=== PATIENT | female | born 1985 | race Caucasian/White ===

== ENCOUNTER → 2018-01-04 08:16 | Outpatient (CLI) | payer MEDICAID | END | disposition home or self-care (01) | LOC: D.US 08:16 | DX: R10.10 Upper abdominal pain, unspecified (principal) ==

== ENCOUNTER → 2018-01-10 12:39 | Outpatient (CLI) | payer MEDICAID | END | disposition home or self-care (01) | LOC: D.NM 12:39 | DX: R10.11 Right upper quadrant pain (principal) ==

== ENCOUNTER → 2018-03-23 10:25 | Outpatient (CLI) | payer MEDICAID | END | disposition home or self-care (01) | LOC: D.LAB 10:25 | DX: R10.12 Left upper quadrant pain (principal) ==

== ENCOUNTER → 2018-03-28 08:55 | Outpatient (CLI) | payer MEDICAID | END | disposition home or self-care (01) | LOC: D.LAB 08:55 | DX: R10.12 Left upper quadrant pain (principal); R19.7 Diarrhea, unspecified; R11.10 Vomiting, unspecified; R63.4 Abnormal weight loss ==

== ENCOUNTER 2018-10-18 00:38 | Emergency (ER) | payer MEDICAID ==
[~2018-10-18] VITALS: Ht 165.1 cm; Wt 80.9 kg
[2018-10-18 00:43] VITALS: Ht 165.1 cm; Wt 80.9 kg
[2018-10-18] MEDS ORDERED: ZESTRIL10 MG PO (00:46)
[2018-10-18] MEDS ORDERED: ZOFRAN4 MG PO (00:46)
[2018-10-18 01:24] LABS: APPEARANCE CLEAR (CLEAR); COLOR YELLOW (YELLOW); SPECIFIC GRAVITY 1.015 (1.005-1.020)
[2018-10-18 01:25] LABS: BILIRUBIN NEGATIVE (NEGATIVE); GLUCOSE NEGATIVE (NEGATIVE); KETONE NEGATIVE (NEGATIVE); NITRITE NEGATIVE (NEGATIVE); PROTEIN NEGATIVE (NEGATIVE); UROBILINOGEN NORMAL (NORMAL)
[2018-10-18 01:26] LABS: BACTERIA FEW /hpf (NONE SEEN); EPITHELIAL CELLS 0-5 /hpf (0-5); RED CELLS - URINE 0-5 /hpf (0-5); WHITE CELLS - URINE 0-5 /hpf (0-5)
[2018-10-18 01:28] LABS: BASOPHILS 1.2 % (0-2); EOSINOPHILS 1.5 % (0-7); HEMATOCRIT 41.8 % (36.0-48.0); HEMOGLOBIN 14.4 g/dL (12-16); IMMATURE GRANULOCYTES 0.1 % (0-5); LYMPHOCYTES 27.2 % (15-50); MCH 29.4 pg (26.0-34.0); MCHC 34.4 g/dL (31.0-37.0); MCV 85.3 fL (80.0-100.0); MEAN PLATELET VOLUME 10.7 fL (7.4-10.4); PLATELET COUNT 236 10x3/uL (130-400); RDW 13.2 % (11.5-14.5); WBC 6.8 10x3/uL (4.8-10.8)
[2018-10-18 01:45] LABS: ALBUMIN 4.2 g/dL (3.4-5.0); ALKALINE PHOSPHATASE 57 U/L (46-116); ALT (SGPT) 24 U/L (10-68); BILIRUBIN - TOTAL 0.26 mg/dL (0.2-1.3); CALC OSMOLALITY 282 mosm/kg (275-300); CARBON DIOXIDE 24.9 mmol/L (21.0-32.0); CHLORIDE - SERUM 104 mmol/L (98-107); CREATININE - SERUM 0.8 mg/dL (0.6-1.3); GLUCOSE 111 mg/dL (74-106); POTASSIUM - SERUM 3.6 mmol/L (3.5-5.1); PROTEIN - SERUM 7.6 g/dL (6.4-8.2); SODIUM 143 mmol/L (136-145); UREA NITROGEN 5 mg/dL (7-18); eGFR NON AFRICAN AMERICAN 87 mL/min (90-120)
[2018-10-18 01:48] LABS: AMYLASE - SERUM 45 U/L (25-115); LIPASE 109 U/L (73-393); TROPONIN-I < 0.017 ng/mL (0.000-0.060)
[2018-10-18] MEDS ORDERED: NORCO 5/325 TAB1 TAB PO (02:51)
[2018-10-18] MEDS ORDERED: BENTYL 20 MG TA20 MG PO (02:51)
[2018-10-18 03:13] VITALS: BP 124/76
== END 2018-10-18 03:13 | disposition home or self-care (01) ==
LOC: D.ER 00:38
PROVIDERS: Emergency Medicine
DX: K58.9 Irritable bowel syndrome, unspecified (principal); R10.9 Unspecified abdominal pain; I10 Essential (primary) hypertension

== ENCOUNTER 2018-10-22 00:14 | Emergency (ER) | payer MEDICAID ==
[~2018-10-22] VITALS: Ht 165.1 cm; Wt 78.2 kg
[~2018-10-22 00:14] MED LIST: BENTYL 20 MG TA20 MG PO; NORCO 5/325 TAB1 TAB PO; ZESTRIL10 MG PO; ZOFRAN4 MG PO
[2018-10-22 00:19] VITALS: Ht 165.1 cm; Wt 78.2 kg
[2018-10-22 00:45] LABS: HEMATOCRIT 40.8 % (36.0-48.0); HEMOGLOBIN 13.7 g/dL (12-16); LYMPHOCYTES 36.9 % (15-50); MCH 28.7 pg (26.0-34.0); MCHC 33.6 g/dL (31.0-37.0); MCV 85.5 fL (80.0-100.0); MEAN PLATELET VOLUME 10.4 fL (7.4-10.4); NEUTROPHILS 56.1 % (40-80); PLATELET COUNT 196 10x3/uL (130-400); RBC 4.77 10x6/uL (4.00-5.40); RDW 12.9 % (11.5-14.5); WBC 6.2 10x3/uL (4.8-10.8)
[2018-10-22 01:05] LABS: ALBUMIN 4.2 g/dL (3.4-5.0); ALKALINE PHOSPHATASE 50 U/L (46-116); ALT (SGPT) 29 U/L (10-68); BILIRUBIN - TOTAL 0.22 mg/dL (0.2-1.3); CALC OSMOLALITY 278 mosm/kg (275-300); CARBON DIOXIDE 28.1 mmol/L (21.0-32.0); CHLORIDE - SERUM 104 mmol/L (98-107); CREATININE - SERUM 0.8 mg/dL (0.6-1.3); GLUCOSE 106 mg/dL (74-106); POTASSIUM - SERUM 3.9 mmol/L (3.5-5.1); PROTEIN - SERUM 7.3 g/dL (6.4-8.2); SODIUM 141 mmol/L (136-145); UREA NITROGEN 7 mg/dL (7-18); eGFR NON AFRICAN AMERICAN 87 mL/min (90-120)
[2018-10-22 01:13] LABS: AMYLASE - SERUM 46 U/L (25-115); LIPASE 118 U/L (73-393); THYROID STIMULATING HORMONE 3.16 uIU/mL (0.36-3.74); TROPONIN-I < 0.017 ng/mL (0.000-0.060)
[2018-10-22 02:15] LABS: APPEARANCE CLEAR (CLEAR); BACTERIA FEW /hpf (NONE SEEN); BILIRUBIN NEGATIVE (NEGATIVE); COLOR STRAW (YELLOW); EPITHELIAL CELLS OCC /hpf (0-5); GLUCOSE NEGATIVE (NEGATIVE); KETONE NEGATIVE (NEGATIVE); NITRITE NEGATIVE (NEGATIVE); PROTEIN NEGATIVE (NEGATIVE); RED CELLS - URINE RARE /hpf (0-5); SPECIFIC GRAVITY 1.005 (1.005-1.020); UROBILINOGEN NORMAL (NORMAL); WHITE CELLS - URINE 0-5 /hpf (0-5)
[2018-10-22 02:53] LABS: HCG URINE NEGATIVE (NEGATIVE)
[2018-10-22 02:58] LABS: UDS - AMPHET NEGATIVE QUAL (NEGATIVE); UDS - BARB NEGATIVE QUAL (NEGATIVE); UDS - BENZO NEGATIVE QUAL (NEGATIVE); UDS - COCAINE NEGATIVE QUAL (NEGATIVE); UDS - OPIATE POSITIVE QUAL (NEGATIVE); UDS - PCP NEGATIVE QUAL (NEGATIVE); UDS - THC NEGATIVE QUAL (NEGATIVE)
[2018-10-22 03:16] VITALS: BP 123/67
== END 2018-10-22 03:16 | disposition home or self-care (01) ==
LOC: D.ER 00:14
PROVIDERS: Family Medicine
DX: R10.12 Left upper quadrant pain (principal); I10 Essential (primary) hypertension; Z87.19 Personal history of other diseases of the digestive system

== ENCOUNTER 2018-11-11 00:36 | Emergency (ER) | payer MEDICAID ==
[~2018-11-11] VITALS: Ht 165.1 cm; Wt 79.1 kg
[2018-11-11 00:40] VITALS: Ht 165.1 cm; Wt 79.1 kg
[2018-11-11] MEDS ORDERED: LEVSIN/ANASP0.125 MG PO (00:55)
[2018-11-11 01:36] VITALS: BP 132/79
== END 2018-11-11 01:36 | disposition home or self-care (01) ==
LOC: D.ER 00:36
DX: K58.9 Irritable bowel syndrome, unspecified (principal)

== ENCOUNTER 2018-11-15 06:42 | Emergency (ER) | payer MEDICAID ==
[~2018-11-15] VITALS: Ht 165.1 cm; Wt 79.1 kg
[~2018-11-15 06:42] MED LIST changes: +LEVSIN/ANASP0.125 MG PO
[2018-11-15 06:50] VITALS: Ht 165.1 cm; Wt 79.1 kg
[2018-11-15 07:05] LABS: HCG URINE NEGATIVE (NEGATIVE)
[2018-11-15 07:06] LABS: APPEARANCE CLEAR (CLEAR); BILIRUBIN NEGATIVE (NEGATIVE); COLOR YELLOW (YELLOW); EPITHELIAL CELLS 0-5 /hpf (0-5); GLUCOSE NEGATIVE (NEGATIVE); KETONE NEGATIVE (NEGATIVE); NITRITE NEGATIVE (NEGATIVE); PROTEIN NEGATIVE (NEGATIVE); SPECIFIC GRAVITY 1.015 (1.005-1.020); UROBILINOGEN NORMAL (NORMAL); WHITE CELLS - URINE 0-5 /hpf (0-5)
[2018-11-15 07:15] LABS: BASOPHILS 0.4 % (0-2); EOSINOPHILS 2.5 % (0-7); HEMATOCRIT 38.3 % (36.0-48.0); HEMOGLOBIN 13.1 g/dL (12-16); IMMATURE GRANULOCYTES 0.2 % (0-5); LYMPHOCYTES 33.3 % (15-50); MCH 29.2 pg (26.0-34.0); MCHC 34.2 g/dL (31.0-37.0); MCV 85.3 fL (80.0-100.0); MEAN PLATELET VOLUME 10.4 fL (7.4-10.4); NEUTROPHILS 56.6 % (40-80); PLATELET COUNT 178 10x3/uL (130-400); RBC 4.49 10x6/uL (4.00-5.40); RDW 13.3 % (11.5-14.5); WBC 5.3 10x3/uL (4.8-10.8)
[2018-11-15 07:24] LABS: ALBUMIN 3.8 g/dL (3.4-5.0); ALKALINE PHOSPHATASE 54 U/L (46-116); ALT (SGPT) 23 U/L (10-68); BILIRUBIN - TOTAL 0.23 mg/dL (0.2-1.3); CALC OSMOLALITY 278 mosm/kg (275-300); CALCIUM 8.5 mg/dL (8.5-10.1); CARBON DIOXIDE 24.1 mmol/L (21.0-32.0); CHLORIDE - SERUM 106 mmol/L (98-107); CREATININE - SERUM 0.7 mg/dL (0.6-1.3); GLUCOSE 106 mg/dL (74-106); LIPASE 83 U/L (73-393); POTASSIUM - SERUM 3.7 mmol/L (3.5-5.1); PROTEIN - SERUM 6.9 g/dL (6.4-8.2); SODIUM 141 mmol/L (136-145); UREA NITROGEN 6 mg/dL (7-18); eGFR NON AFRICAN AMERICAN > 90 mL/min (90-120)
[2018-11-15] MEDS ORDERED: TORADOL10 MG PO (08:08)
[2018-11-15 09:09] VITALS: BP 102/50
== END 2018-11-15 09:05 | disposition home or self-care (01) ==
LOC: D.ER 06:42
PROVIDERS: Family Medicine
DX: R10.9 Unspecified abdominal pain (principal); R11.10 Vomiting, unspecified

== ENCOUNTER 2018-11-19 06:14 | Emergency (ER) | payer MEDICAID ==
[~2018-11-19] VITALS: Ht 165.1 cm; Wt 80.7 kg
[~2018-11-19 06:14] MED LIST changes: +TORADOL10 MG PO
[2018-11-19 06:22] VITALS: Ht 165.1 cm; Wt 80.7 kg
[2018-11-19] MEDS ORDERED: BENTYL 20 MG TA20 MG PO (07:00)
[2018-11-19 07:30] VITALS: BP 156/81
== END 2018-11-19 07:40 | disposition home or self-care (01) ==
LOC: D.ER 06:14
DX: R10.9 Unspecified abdominal pain (principal)

== ENCOUNTER → 2018-11-23 12:40 | Outpatient (CLI) | payer MEDICAID ==
[2018-11-19 06:22] VITALS: BMI 29.6
[2018-11-23 13:53] LABS: ALBUMIN 3.8 g/dL (3.4-5.0); ALKALINE PHOSPHATASE 63 U/L (46-116); ALT (SGPT) 26 U/L (10-68); BILIRUBIN - TOTAL 0.27 mg/dL (0.2-1.3); C-REACTIVE PROTEIN 0.2 mg/dL (0.0-0.9); CALC OSMOLALITY 279 mosm/kg (275-300); CALCIUM 8.7 mg/dL (8.5-10.1); CARBON DIOXIDE 27.1 mmol/L (21.0-32.0); CHLORIDE - SERUM 105 mmol/L (98-107); CREATININE - SERUM 0.7 mg/dL (0.6-1.3); GLUCOSE 119 mg/dL (74-106); PROTEIN - SERUM 7.3 g/dL (6.4-8.2); SODIUM 141 mmol/L (136-145); UREA NITROGEN 7 mg/dL (7-18); eGFR NON AFRICAN AMERICAN > 90 mL/min (90-120)
[2018-11-23 14:34] LABS: BASOPHILS 1.1 % (0-2); EOSINOPHILS 1.7 % (0-7); HEMATOCRIT 39.9 % (36.0-48.0); HEMOGLOBIN 13.5 g/dL (12-16); LYMPHOCYTES 28.4 % (15-50); MCHC 33.8 g/dL (31.0-37.0); MCV 85.6 fL (80.0-100.0); MEAN PLATELET VOLUME 10.3 fL (7.4-10.4); MONOCYTES 7.8 % (2-11); PLATELET COUNT 208 10x3/uL (130-400); RBC 4.66 10x6/uL (4.00-5.40); RDW 13.4 % (11.5-14.5); WBC 5.4 10x3/uL (4.8-10.8)
[2018-11-23 15:59] LABS: ERYTHROCYTE SEDIMENTATION RATE 5 mm/hr (0-20)
== END | disposition home or self-care (01) ==
LOC: D.RAD 12:40
PROVIDERS: Internal Medicine Gastroenterology
DX: K59.00 Constipation, unspecified (principal)

== ENCOUNTER 2018-12-17 03:57 | Emergency (ER) | payer MEDICAID ==
[~2018-12-17] VITALS: Ht 165.1 cm; Wt 77.6 kg
[2018-12-17 04:00] VITALS: Ht 165.1 cm; Wt 77.6 kg
[2018-12-17 04:40] LABS: BASOPHILS 0.8 % (0-2); EOSINOPHILS 3.3 % (0-7); HEMATOCRIT 38.9 % (36.0-48.0); HEMOGLOBIN 13.2 g/dL (12-16); LYMPHOCYTES 27.4 % (15-50); MCH 28.8 pg (26.0-34.0); MCHC 33.9 g/dL (31.0-37.0); MCV 84.9 fL (80.0-100.0); MEAN PLATELET VOLUME 10.2 fL (7.4-10.4); MONOCYTES 11.5 % (2-11); PLATELET COUNT 187 10x3/uL (130-400); RBC 4.58 10x6/uL (4.00-5.40); RDW 12.9 % (11.5-14.5); WBC 5.2 10x3/uL (4.8-10.8)
[2018-12-17 04:42] LABS: APPEARANCE CLEAR (CLEAR); BILIRUBIN NEGATIVE (NEGATIVE); COLOR YELLOW (YELLOW); GLUCOSE NEGATIVE (NEGATIVE); HCG URINE NEGATIVE (NEGATIVE); KETONE NEGATIVE (NEGATIVE); NITRITE NEGATIVE (NEGATIVE); PROTEIN NEGATIVE (NEGATIVE); UROBILINOGEN NORMAL (NORMAL)
[2018-12-17 05:06] LABS: ALBUMIN 3.9 g/dL (3.4-5.0); ALKALINE PHOSPHATASE 75 U/L (46-116); ALT (SGPT) 18 U/L (10-68); AMYLASE - SERUM 48 U/L (25-115); BILIRUBIN - TOTAL 0.33 mg/dL (0.2-1.3); CALC OSMOLALITY 280 mosm/kg (275-300); CALCIUM 8.7 mg/dL (8.5-10.1); CHLORIDE - SERUM 104 mmol/L (98-107); CREATININE - SERUM 0.7 mg/dL (0.6-1.3); GLUCOSE 107 mg/dL (74-106); LIPASE 104 U/L (73-393); POTASSIUM - SERUM 4.3 mmol/L (3.5-5.1); PROTEIN - SERUM 7.6 g/dL (6.4-8.2); SODIUM 142 mmol/L (136-145); UREA NITROGEN 8 mg/dL (7-18); eGFR NON AFRICAN AMERICAN > 90 mL/min (90-120)
[2018-12-17 06:40] VITALS: BP 124/75
== END 2018-12-17 06:40 | disposition home or self-care (01) ==
LOC: D.ER 03:57
PROVIDERS: Family Medicine
DX: K58.9 Irritable bowel syndrome, unspecified (principal); R11.2 Nausea with vomiting, unspecified

== ENCOUNTER → 2019-02-15 13:02 | Outpatient (CLI) | payer MEDICAID ==
[2018-12-17 04:00] VITALS: BMI 29.6
== END | disposition home or self-care (01) ==
LOC: D.RAD 13:02
PROVIDERS: ATTEND Internal Medicine Gastroenterology
DX: K59.00 Constipation, unspecified (principal)

== ENCOUNTER 2019-07-09 03:50 | Emergency (ER) | payer MEDICAID ==
[~2019-07-09] VITALS: Ht 165.1 cm; Wt 75.9 kg
[2019-07-09 03:53] VITALS: Ht 165.1 cm; Wt 75.9 kg
[2019-07-09 04:48] LABS: BASOPHILS 0.9 % (0-2); EOSINOPHILS 2.4 % (0-7); HEMOGLOBIN 13.6 g/dL (12-16); IMMATURE GRANULOCYTES 0.1 % (0-5); LYMPHOCYTES 29.3 % (15-50); MCH 29.4 pg (26.0-34.0); MCV 86.6 fL (80.0-100.0); MONOCYTES 9.8 % (2-11); NEUTROPHILS 57.5 % (40-80); RBC 4.62 10x6/uL (4.00-5.40); RDW 12.8 % (11.5-14.5); WBC 7.6 10x3/uL (4.8-10.8)
[2019-07-09 05:09] LABS: APPEARANCE CLOUDY (CLEAR); BILIRUBIN NEGATIVE (NEGATIVE); COLOR YELLOW (YELLOW); GLUCOSE NEGATIVE (NEGATIVE); KETONE NEGATIVE (NEGATIVE); NITRITE NEGATIVE (NEGATIVE); PLATELET COUNT 255 10x3/uL (130-400); PROTEIN NEGATIVE (NEGATIVE); UROBILINOGEN NORMAL (NORMAL)
[2019-07-09 05:13] LABS: HCG SERUM NEGATIVE (NEGATIVE)
[2019-07-09 05:14] LABS: WHITE CELLS - URINE 0-5 /hpf (NEGATIVE)
[2019-07-09 05:15] LABS: ALBUMIN 4.1 g/dL (3.4-5.0); ALKALINE PHOSPHATASE 71 U/L (46-116); ALT (SGPT) 17 U/L (10-68); BACTERIA FEW /hpf (NEGATIVE); BILIRUBIN - TOTAL 0.51 mg/dL (0.2-1.3); CALC OSMOLALITY 279 mosm/kg (275-300); CALCIUM 8.8 mg/dL (8.5-10.1); CARBON DIOXIDE 26.6 mmol/L (21.0-32.0); CHLORIDE - SERUM 106 mmol/L (98-107); CREATININE - SERUM 0.8 mg/dL (0.6-1.3); EPITHELIAL CELLS 0-5 /hpf (0-5); GLUCOSE 101 mg/dL (74-106); POTASSIUM - SERUM 3.6 mmol/L (3.5-5.1); PROTEIN - SERUM 7.5 g/dL (6.4-8.2); SODIUM 141 mmol/L (136-145); UREA NITROGEN 9 mg/dL (7-18); eGFR NON AFRICAN AMERICAN 86 mL/min (90-120)
[2019-07-09 05:19] LABS: AMYLASE - SERUM 44 U/L (25-115); LIPASE 97 U/L (73-393)
[2019-07-09 05:20] LABS: TROPONIN-I < 0.017 ng/mL (0.000-0.060)
[2019-07-09] MEDS ORDERED: NAPROSYN500 MG PO (08:10)
[2019-07-09] MEDS ORDERED: ZOFRAN8 MG PO (08:10)
[2019-07-09 08:38] VITALS: BP 112/64
== END 2019-07-09 08:36 | disposition home or self-care (01) ==
LOC: D.ER 03:50
PROVIDERS: Family Medicine
DX: R10.2 Pelvic and perineal pain (principal); N83.209 Unspecified ovarian cyst, unspecified side

== ENCOUNTER 2019-07-26 06:31 | Emergency (ER) | payer MEDICAID ==
[~2019-07-26] VITALS: Ht 165.1 cm; Wt 74.5 kg
[~2019-07-26 06:31] MED LIST changes: +NAPROSYN500 MG PO; +ZOFRAN8 MG PO
[2019-07-26 06:34] VITALS: Ht 165.1 cm; Wt 74.5 kg
[2019-07-26 07:07] LABS: HCG URINE NEGATIVE (NEGATIVE)
[2019-07-26 07:15] LABS: BASOPHILS 0.8 % (0-2); EOSINOPHILS 1.8 % (0-7); HEMOGLOBIN 14.7 g/dL (12-16); IMMATURE GRANULOCYTES 0.1 % (0-5); LYMPHOCYTES 32.7 % (15-50); MCH 29.6 pg (26.0-34.0); MCHC 33.4 g/dL (31.0-37.0); MCV 88.7 fL (80.0-100.0); MEAN PLATELET VOLUME 10.4 fL (7.4-10.4); MONOCYTES 7.4 % (2-11); NEUTROPHILS 57.2 % (40-80); PLATELET COUNT 219 10x3/uL (130-400); RBC 4.96 10x6/uL (4.00-5.40); RDW 12.9 % (11.5-14.5); WBC 7.4 10x3/uL (4.8-10.8)
[2019-07-26 07:18] LABS: APPEARANCE HAZY (CLEAR); BACTERIA MODERATE /hpf (NEGATIVE); BILIRUBIN NEGATIVE (NEGATIVE); COLOR STRAW (YELLOW); GLUCOSE NEGATIVE (NEGATIVE); KETONE NEGATIVE (NEGATIVE); MUCUS >1+ /lpf (NONE SEEN); NITRITE NEGATIVE (NEGATIVE); PROTEIN NEGATIVE (NEGATIVE); RED CELLS - URINE RARE /hpf (0-5); UROBILINOGEN NORMAL (NORMAL); WHITE CELLS - URINE 0-5 /hpf (NEGATIVE)
[2019-07-26 07:31] LABS: ALBUMIN 4.4 g/dL (3.4-5.0); C-REACTIVE PROTEIN < 0.2 mg/dL (0.0-0.9); CALC OSMOLALITY 279 mosm/kg (275-300); CALCIUM 9.1 mg/dL (8.5-10.1); CARBON DIOXIDE 28.7 mmol/L (21.0-32.0); CHLORIDE - SERUM 103 mmol/L (98-107); CREATININE - SERUM 0.7 mg/dL (0.6-1.3); GLUCOSE 88 mg/dL (74-106); POTASSIUM - SERUM 3.8 mmol/L (3.5-5.1); SODIUM 142 mmol/L (136-145); UREA NITROGEN 6 mg/dL (7-18); eGFR NON AFRICAN AMERICAN > 90 mL/min (90-120)
[2019-07-26 07:44] LABS: ALKALINE PHOSPHATASE 69 U/L (46-116); ALT (SGPT) 17 U/L (10-68); BILIRUBIN - TOTAL 0.45 mg/dL (0.2-1.3); LIPASE 116 U/L (73-393)
[2019-07-26 07:45] LABS: PROTEIN - SERUM 8.1 g/dL (6.4-8.2)
[2019-07-26] MEDS ORDERED: CYCLOBENZAPRINE10 MG PO (08:00)
[2019-07-26] MEDS ORDERED: IBUPROFEN800 MG PO (08:00)
[2019-07-26] MEDS ORDERED: MACROBID100 MG PO (08:00)
[2019-07-26] MEDS ORDERED: KEFLEX500 MG PO (08:00)
[2019-07-26] MEDS ORDERED: ACETAMINOPHEN500 M1 PO (08:00)
[2019-07-26 08:36] VITALS: BP 119/75
== END 2019-07-26 08:36 | disposition home or self-care (01) ==
LOC: D.ER 06:31
PROVIDERS: Family Medicine
DX: R10.2 Pelvic and perineal pain (principal); N39.0 Urinary tract infection, site not specified

== ENCOUNTER 2019-10-11 19:47 | Emergency (ER) | payer MEDICAID ==
[~2019-10-11] VITALS: Ht 165.1 cm; Wt 70.9 kg
[~2019-10-11 19:47] MED LIST changes: +ACETAMINOPHEN500 M1 PO; +CYCLOBENZAPRINE10 MG PO; +IBUPROFEN800 MG PO; +KEFLEX500 MG PO; +MACROBID100 MG PO
[2019-10-11 20:02] VITALS: Ht 165.1 cm; Wt 70.9 kg
[2019-10-11] MEDS ORDERED: AMOXICILLIN875 MG PO (22:18)
[2019-10-11 22:27] VITALS: BP 130/91
== END 2019-10-11 22:27 | disposition home or self-care (01) ==
LOC: D.ER 19:47
DX: T78.40XA Allergy, unspecified, initial encounter (principal); X58.XXXA Exposure to other specified factors, initial encounter

== ENCOUNTER 2020-03-24 00:38 | Emergency (ER) | payer MEDICAID ==
[~2020-03-24] VITALS: Ht 165.1 cm; Wt 74.8 kg
[~2020-03-24 00:38] MED LIST changes: +AMOXICILLIN875 MG PO
[2020-03-24 00:56] VITALS: Ht 165.1 cm; Wt 74.8 kg
[2020-03-24 01:27] LABS: BASOPHILS 0.8 % (0-2); EOSINOPHILS 0.8 % (0-7); HEMATOCRIT 44.4 % (36.0-48.0); HEMOGLOBIN 14.8 g/dL (12-16); IMMATURE GRANULOCYTES 0.3 % (0-5); LYMPHOCYTES 19.5 % (15-50); MCH 29.3 pg (26.0-34.0); MCHC 33.3 g/dL (31.0-37.0); MCV 87.9 fL (80.0-100.0); MONOCYTES 9.8 % (2-11); NEUTROPHILS 68.8 % (40-80); PLATELET COUNT 257 10x3/uL (130-400); RBC 5.05 10x6/uL (4.00-5.40); WBC 9.9 10x3/uL (4.8-10.8)
[2020-03-24 01:30] LABS: HCG URINE NEGATIVE (NEGATIVE)
[2020-03-24 01:37] LABS: BILIRUBIN NEGATIVE (NEGATIVE); GLUCOSE NEGATIVE (NEGATIVE); KETONE NEGATIVE (NEGATIVE); NITRITE NEGATIVE (NEGATIVE); SPECIFIC GRAVITY 1.015 (1.005-1.020); UROBILINOGEN NORMAL (NORMAL)
[2020-03-24 01:38] LABS: BACTERIA FEW /hpf (NEGATIVE); EPITHELIAL CELLS 0-5 /hpf (0-5); RED CELLS - URINE 0-5 /hpf (0-5); WHITE CELLS - URINE 0-5 /hpf (NEGATIVE)
[2020-03-24 01:41] LABS: CALC OSMOLALITY 272 mosm/kg (275-300); CALCIUM 9.1 mg/dL (8.5-10.1); CARBON DIOXIDE 29.7 mmol/L (21.0-32.0); CHLORIDE - SERUM 101 mmol/L (98-107); CREATININE - SERUM 0.6 mg/dL (0.6-1.3); GLUCOSE 97 mg/dL (74-106); POTASSIUM - SERUM 4.9 mmol/L (3.5-5.1); SODIUM 138 mmol/L (136-145); UREA NITROGEN 4 mg/dL (7-18); eGFR NON AFRICAN AMERICAN > 90 mL/min (90-120)
[2020-03-24 01:49] LABS: ALBUMIN 4.5 g/dL (3.4-5.0); ALKALINE PHOSPHATASE 66 U/L (30-120); ALT (SGPT) 27 U/L (10-68); AMYLASE - SERUM 48 U/L (25-115); BILIRUBIN - TOTAL 0.84 mg/dL (0.2-1.3); PROTEIN - SERUM 8.6 g/dL (6.4-8.2); TROPONIN-I < 0.017 ng/mL (0.000-0.060)
[2020-03-24 01:50] LABS: LIPASE 48 U/L (73-393)
[2020-03-24 02:49] LABS: UDS - AMPHET NEGATIVE QUAL (NEGATIVE); UDS - BARB NEGATIVE QUAL (NEGATIVE); UDS - BENZO NEGATIVE QUAL (NEGATIVE); UDS - COCAINE NEGATIVE QUAL (NEGATIVE); UDS - OPIATE NEGATIVE QUAL (NEGATIVE); UDS - PCP NEGATIVE QUAL (NEGATIVE); UDS - THC NEGATIVE QUAL (NEGATIVE)
[2020-03-24] MEDS ORDERED: FLAGYL500 MG PO (03:33)
[2020-03-24] MEDS ORDERED: HYDROCODON-ACE1 EAC7 PO (03:33)
[2020-03-24] MEDS ORDERED: PHENERGAN25 M1 PO (03:33)
[2020-03-24] MEDS ORDERED: CIPRO500 MG PO (03:33)
[2020-03-24 05:08] VITALS: BP 132/77
== END 2020-03-24 05:10 | disposition home or self-care (01) ==
LOC: D.ER 00:38
PROVIDERS: Emergency Medicine
DX: R10.84 Generalized abdominal pain (principal); R19.7 Diarrhea, unspecified; R11.0 Nausea